=== PATIENT | male | born 1990 | race Caucasian/White ===

== ENCOUNTER 2017-08-04 21:01 | Emergency (ER) | payer MEDICAID ==
[2017-08-04 21:07] VITALS: BP 141/81
[2017-08-04] MEDS ORDERED: DIPH/PERTUSS(ACELL)/TETANUS VAC/PF 0.5 ML SYR (>=10YO) IM ONE (21:47)
--- NOTE | 2017-08-04 21:50 | ER Document Report ---
ED Extremity Problem, Lower - General Chief Complaint: Ankle Injury Stated Complaint: FALL/ANKLE PAIN Time Seen by Provider: 08/04/17 21:16 Mode of Arrival: Ambulatory Information source: Patient - HPI Patient complains to provider of: Injury Location: Ankle Notes: Patient is here with complaints of left ankle pain. He states that [place] his left ankle. He states that it swelled laterally immediately. He has pain to the lateral ankle since that time. He is able to ambulate, but with pain. Pain is worse with ambulation as well as touching the area. He also states that he scraped up his right knee. The knee does not hurt. He denies any numbness, tingling, weakness. No foot pain. No knee pain. He denies striking his head or loss of consciousness. No nausea, vomiting, diarrhea. No rash. He is unsure of his last tetanus shot. He denies any other complaints or other injuries at this time. - Related Data Allergies/Adverse Reactions: No Known Allergies Allergy (Unverified 08/04/17 21:05) Past Medical History - Social History Smoking Status: Current Some Day Smoker Chew tobacco use (# tins/day): Yes Frequency of alcohol use: Occasional Drug Abuse: None Family History: Reviewed & Not Pertinent Patient has suicidal ideation: No Patient has homicidal ideation: No Renal/ Medical History: Denies: Hx Peritoneal Dialysis Review of Systems - Review of Systems -: Yes All other systems reviewed and negative Physical Exam - Vital signs Vitals: Temp Pulse Resp BP Pulse Ox 98.9 F 127 H 16 141/81 H 99 08/04/17 21:04 08/04/17 21:04 08/04/17 21:04 08/04/17 21:04 08/04/17 21:04 - Notes Notes: GENERAL: alert, cooperative, nontoxic, no distress. HEAD: normocephalic, atraumatic EYES: conjunctiva pink without discharge, no external redness or swelling. EARS: no external swelling, no external redness NOSE: atraumatic, no external swelling MOUTH/THROAT: mucous membranes moist and pink NECK: soft, supple, full range of motion, no meningismus. CHEST: no distress, lungs clear and equal throughout. No wheezing, rales, rhonchi. CARDIAC: regular rate and rhythm, no murmur, normal capillary refill, normal pulses. BACK: full range of motion, no CVA tenderness. EXTREMITIES: full range of motion of all extremities. Swelling and tenderness to the lateral malleolus of the left ankle. No medial malleolar tenderness. No foot tenderness. Achilles is intact with a normal Bell's test. No proximal tib-fib tenderness. Compartments are soft. Normal neurovascular exam. Superficial abrasion to the right anterior knee with no tenderness. Full range of motion. NEURO: alert and oriented 3, no focal deficits, full range of motion of all extremities. PYSCH: appropriate mood, affect. Patient is cooperative. SKIN: pink, warm, dry, no rash. First-degree sunburn diffusely. Abrasion of the right anterior knee. No surrounding redness or signs of infection. Course - Re-evaluation Re-evalutation: 08/04/17 22:34 Patient is nontoxic appearing with stable vitals. The patient is here with complaints of left ankle pain after twisting his ankle [place] the beach. He also complains of a superficial abrasion of the right knee. No significant knee pain. He is noted to have some lateral ankle pain and swelling. No ligament instability. No proximal tib-fib tenderness. Compartments are soft. Normal neurovascular exam. X-ray shows no acute bony fractures. No signs of infection. Patient states that his last tetanus shot was within the last year. The patient had an ankle stirrup splint applied. He was given crutches. He will be discharged home with instructions to rest, ice, elevate. Prescription for Naprosyn. Follow-up if not better in 1 week, sooner for worsening pain, fever, numbness, tingling, weakness, any further concerns. The patient is noted to have elevated blood pressure during today's emergency department visit. The patient was informed of this finding. The patient was instructed that this may be related to pre-hypertension and requires further evaluation with a primary care provider. The patient has no hypertensive symptoms at this time. The patient's emergency department workup and current diagnosis were explained to the patient and or family. Follow-up instructions were provided. Medications if prescribed were discussed. Instructions for when to return to the emergency department including specific worrisome symptoms were discussed with the patient and/or family. - Vital Signs Vital signs: Temp Pulse Resp BP Pulse Ox 98.9 F 127 H 16 141/81 H 99 08/04/17 21:04 08/04/17 21:04 08/04/17 21:04 08/04/17 21:04 08/04/17 21:04 - Diagnostic Test Radiology reviewed: Image reviewed, Reports reviewed - Negative ankle x-ray Procedures - Immobilization Left ankle Pre-Proc Neuro Vasc Exam: Normal Immobilizer type: Ankle stirrup Performed by: RN Post-Proc Neuro Vasc Exam: Normal Alignment checked and good: Yes Discharge - Discharge Clinical Impression: Left ankle sprain Qualifiers: Encounter type: initial encounter Involved ligament of ankle: unspecified ligament Qualified Code(s): S93.402A - Sprain of unspecified ligament of left ankle, initial encounter Condition: Stable Disposition: HOME, SELF-CARE Instructions: Ankle Stirrup Splint ([facility]), Use of Crutches ([facility]) Additional Instructions: Take medications as prescribed. Wear splint and use crutches as needed for comfort. Rest, ice, elevate. Follow-up if not better in 1 week, sooner for worsening symptoms, high fever, numbness, tingling, weakness, any further concerns. Your blood pressure was elevated during today's visit. Have this rechecked with your doctor. Prescriptions: Naproxen [Naprosyn] 500 mg PO BID #20 tablet Forms: Elevated Blood Pressure, Smoking Cessation Education Referrals: [facility] [Provider Group] - Follow up as needed
--- NOTE | 2017-08-04 22:29 | RADIOLOGY REPORT (SQ) ---
EXAM DESCRIPTION: ANKLE LEFT COMPLETE COMPLETED DATE/TIME: 08/04/2017 10:10 pm REASON FOR STUDY: FALL, INJURY COMPARISON: None. NUMBER OF VIEWS: Three views. TECHNIQUE: AP, lateral, and oblique radiographic images acquired of the left ankle. LIMITATIONS: None. FINDINGS: MINERALIZATION: Normal. BONES: No acute fracture or dislocation. No worrisome bone lesions. JOINTS: No effusions. SOFT TISSUES: Soft tissue swelling overlies the lateral malleolus. OTHER: No other significant finding. IMPRESSION: Lateral soft tissue swelling without underlying osseous injury. TECHNICAL DOCUMENTATION: JOB ID: [id number] [employer]- All Rights Reserved Reading location - IP/workstation name: [email or web address]
== END 2017-08-04 22:46 | disposition home or self-care (01) ==
LOC: ER 21:01
DX: S93.402A Sprain of unspecified ligament of left ankle, initial encounter (principal); S80.211A Abrasion, right knee, initial encounter; W10.8XXA Fall (on) (from) other stairs and steps, initial encounter; Y92.832 Beach as the place of occurrence of the external cause; L55.0 Sunburn of first degree; R03.0 Elevated blood-pressure reading, without diagnosis of hypertension; F17.200 Nicotine dependence, unspecified, uncomplicated
CPT/HCPCS: 99283; 73610; L1902